=== PATIENT | female | born 1990 | race Caucasian/White ===

== ENCOUNTER 2022-10-30 15:28 | Emergency (ER) | payer SELFPAY ==
--- NOTE | ~2022-10-30 | XR_ITS ---
EXAMINATION: XR CHEST 2 VIEW CLINICAL INFORMATION: Chest pain, left side since September COMPARISON: None TECHNIQUE: PA and lateral views of the chest obtained. FINDINGS: The lungs are clear. There are no pleural effusions. The cardiomediastinal silhouette is normal. No rib fracture, bone lesion or pneumothorax. XR/XR chest 2V IMPRESSION: No acute cardiopulmonary disease.
--- NOTE | 2022-10-30 15:33 | ECG_ITS ---
Test Reason : chest pain Blood Pressure : / mmHG Vent. Rate : 088 BPM Atrial Rate : 088 BPM P-R Int : 146 ms QRS Dur : 072 ms QT Int : 362 ms P-R-T Axes : 032 012 038 degrees QTc Int : 438 ms Sinus rhythm with marked sinus arrhythmia Cannot rule out Anterior infarct , age undetermined Abnormal ECG No previous ECGs available Referred By: Generic ED Physician Electronically Signed By:SEBAS SWANSON
[2022-10-30 15:56] LABS: MANUAL DIFF FLAG NO
[2022-10-30 16:08] LABS: Basophils Absolute Auto 0.1 X10*3/uL (0.0-0.2); Eosinophils Absolute Auto 0.3 X10*3/uL (0.0-0.4); Hematocrit 35.6 % (37.0-47.0); Hemoglobin 11.9 g/dl (12.0-16.0); Imm Gran Abs Auto 0.02 X10*3/uL (0.00-0.03); Imm Gran Pct Auto 0.2 % (0.0-0.4); Lymphocytes Absolute Auto 2.9 X10*3/uL (1.2-4.9); Lymphocytes Percent Auto 32.8 % (20-40); Mean Corpuscular HGB Conc 33.4 g/dl (31.0-35.0); Mean Corpuscular Hemoglobin 29.3 pg (27.0-33.0); Mean Corpuscular Volume 87.7 fL (80.0-98.0); Mean Platelet Volume 9.7 fL (9.4-12.3); Monocytes Absolute Auto 0.6 X10*3/uL (0.1-1.2); Monocytes Percent Auto 7.2 % (2-11); Neutrophils Percent Auto 55.8 % (45-73); Platelet Count 335 X10*3/uL (160-400); Red Blood Count 4.06 X10*6/uL (4.20-5.50); Red Cell Distribution Width 13.2 % (11.0-16.0); White Blood Count 8.9 X10*3/uL (4.8-10.8)
[2022-10-30 16:19] LABS: Anion Gap 9 (12-20); Blood Urea Nitrogen 16 mg/dL (9-16); Calcium 9.6 mg/dL (8.4-10.2); Carbon Dioxide 23 mmol/L (22-29); Chloride 109 mmol/L (96-108); Estimated Glomerular Filt Rate > 60; Glucose Random 100 mg/dL (60-115); Potassium 3.8 mmol/L (3.3-5.1); Sodium 137 mmol/L (135-145)
[2022-10-30 16:21] VITALS: BP 148/83; PULSE 81; RESP 18; TEMP 36.3; O2SAT 99; BMI 40.7
--- NOTE | 2022-10-30 16:21 | ED.CHESTPAIN ---
HPI - Chest Pain General Chief Complaint: Chest Pain Stated Complaint: chest pain Related Data Allergies Allergy/AdvReac Type Severity Reaction Status Date / Time No Known Allergies Allergy Verified 10/30/22 16:21 [facility] Social History Social History Advance Directives: No Advance Directives Information Provided: No Physical Exam Vital Signs: Vital Signs: Last Vital Signs Temp 97.3 F 10/30/22 16:21 Pulse 81 10/30/22 16:21 Resp 18 10/30/22 16:21 BP 148/83 H 10/30/22 16:21 Pulse Ox 99 10/30/22 16:21 O2 Del Method Room Air 10/30/22 16:21 BMI result Body Mass Index 40.7 Course Course Course Narrative: RME - 32 yo male presents to the ER for evaluation of intermittent sharp, non radiating left sided chest pains since September. Occurs randomly, lasts about an hour and then subsides. More SOB w/ exertion than usual similar to when she had asthma as a kid. No URI symptoms. 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 HR 80s and SpO2 98% in triage. No unilateral leg swelling. PERC negative Plan: EKG, lab workup Reevaluation(s) Reevaluation #1: patient eloped prior to completing eval and treatment Medical Decision Making Lab Data 10/30/22 15:51 10/30/22 15:51 Labs: Lab Results 10/30/22 Range/Units 15:51 WBC 8.9 (4.8-10.8) X10*3/uL RBC 4.06 L (4.20-5.50) X10*6/uL Hgb 11.9 L (12.0-16.0) g/dl Hct 35.6 L (37.0-47.0) % MCV 87.7 (80.0-98.0) fL MCH 29.3 (27.0-33.0) pg MCHC 33.4 (31.0-35.0) g/dl RDW 13.2 (11.0-16.0) % Plt Count 335 (160-400) X10*3/uL MPV 9.7 (9.4-12.3) fL Immature Gran % (Auto) 0.2 (0.0-0.4) % Neut % (Auto) 55.8 (45-73) % Lymph % (Auto) 32.8 (20-40) % Nicholas % (Auto) 7.2 (2-11) % Eos % (Auto) 3.0 (0-4) % Baso % (Auto) 1.0 (0-2) % Lymph # (Auto) 2.9 (1.2-4.9) X10*3/uL Nicholas # (Auto) 0.6 (0.1-1.2) X10*3/uL Eos # (Auto) 0.3 (0.0-0.4) X10*3/uL Baso # (Auto) 0.1 (0.0-0.2) X10*3/uL Abs Immat Gran (auto) 0.02 (0.00-0.03) X10*3/uL Absolute Neuts (auto) 5.0 (2.0-8.3) x10*3/uL Absolute Nucleated RBC 0.000 (0.0-0.012) X10*3/uL Nucleated RBC % (auto) 0.0 (0.0-0.2) /100WBC Sodium 137 (135-145) mmol/L Potassium 3.8 (3.3-5.1) mmol/L Chloride 109 H (96-108) mmol/L Carbon Dioxide 23 (22-29) mmol/L Anion Gap 9 L (12-20) BUN 16 (9-16) mg/dL Creatinine 0.85 (0.5-1.4) mg/dL Estim Creat Clear Calc TNP Estimated GFR > 60 Random Glucose 100 (60-115) mg/dL Calcium 9.6 (8.4-10.2) mg/dL Troponin I High Sens < 2.7 (<3.5-17.0) ng/L Discharge Plan Discharge Clinical Impression: Chest pain Patient Disposition: Left W/O Completing Treatment Discharge Date/Time: 10/30/22 20:04
[2022-10-30 16:28] LABS: Troponin-I High Sensitivity < 2.7 ng/L (<3.5-17.0)
== END 2022-10-30 20:04 | disposition left against medical advice (07) ==
PROVIDERS: Emergency Provider Emergency Medicine
DX: R07.89 Other chest pain (principal); Z79.899 Other long term (current) drug therapy
CPT/HCPCS: 36415; 71046; 80048; 84484; 85025; 93005; 99283